=== PATIENT | female | born 1965 | race Caucasian/White ===

== ENCOUNTER 2016-05-25 14:22 | Inpatient (IN) | payer OTHER ==
[~2016-05-25 14:22] MED LIST: ADIPEX-P37.5 MG PO; ALLOPURINOL100 MG PO; CIMETIDINE300 MG PO; EFFEXOR XR37.5 MG PO; HCTZ12.5 MG PO; IBUPROFEN400 MG PO; PRENATAL FORMU1 EACH PO; TOPROL XL 50 MG50 MG PO; VITAMIN D50000 UNIT PO; XARELTO10 MG PO
[2016-05-26 05:05] LABS: HCT 36.4 % (37.0-47.0); HGB 11.6 g/dl (12.5-16.0); MCH 30.9 pg (25.0-31.0); MCHC 31.9 g/dL (32.0-36.0); MCV 96.8 fL (78.0-100.0); MPV 12.1 fL (6.0-9.5); RBC 3.76 M/uL (4.20-5.40); RDW 14.8 % (11.5-14.0); WBC 6.6 K/uL (4.0-10.5)
[2016-05-26 05:23] LABS: CREATININE 0.7 mg/dL (0.5-1.0); POTASSIUM 3.8 mmol/L (3.5-5.1)
[2016-05-27 05:15] LABS: HCT 35.9 % (37.0-47.0); HGB 11.6 g/dl (12.5-16.0); MCH 30.9 pg (25.0-31.0); MCHC 32.3 g/dL (32.0-36.0); MCV 95.7 fL (78.0-100.0); MPV 12.1 fL (6.0-9.5); RBC 3.75 M/uL (4.20-5.40); RDW 14.7 % (11.5-14.0); WBC 6.6 K/uL (4.0-10.5)
--- NOTE | 2016-05-28 01:32 | NUR ---
TELEHOSPITALIST NOTIFIED REGARDING PT'S ELEVATED BP (176/81) HR (63). SBP HAS BEEN ELEVATED OFF AND ON SINCE ADMISSION AFTER SURGERY. MD GAVE ORDER FOR ONE TIME DOSE OF HCTZ 12.5MG PO.
[2016-05-28 05:22] LABS: HCT 36.2 % (37.0-47.0); HGB 11.9 g/dl (12.5-16.0); MCH 31.4 pg (25.0-31.0); MCHC 32.9 g/dL (32.0-36.0); MCV 95.5 fL (78.0-100.0); MPV 12.1 fL (6.0-9.5); RBC 3.79 M/uL (4.20-5.40); RDW 14.8 % (11.5-14.0); WBC 7.3 K/uL (4.0-10.5)
[2016-05-28] MEDS ORDERED: PERCOCET 5/3251 TAB PO (10:44)
--- NOTE | 2016-05-28 13:32 | NUR ---
REVIEWED DISCHARGE EDUCATION, MEDICATIONS, APPT WITH PT AND SPOUSE BOTH VERBALIZE UNDERSTANDING PT GIVEN XARELTO DOSE, EXTRA DRESSING, SCRIPTS DENIES PAIN OR DISCOMFORT
[2016-05-28] MEDS ORDERED: PRINIVIL10 MG PO (15:59)
[2016-05-28] MEDS ORDERED: FEOSOL325 MG PO (15:59)
== END 2016-05-28 13:32 | disposition home health service (06) | DRG 470 ==
LOC: FMS 14:22
PROVIDERS: Internal Medicine; ADMIT Legal Medicine
PROC: 0SRC0J9 Replacement of Right Knee Joint with Synthetic Substitute, Cemented, Open Approach (ICD-10-PCS; principal; 2016-05-25 12:00)
DX: M17.11 Unilateral primary osteoarthritis, right knee (principal); D62 Acute posthemorrhagic anemia; I10 Essential (primary) hypertension; Z68.42 Body mass index [BMI] 45.0-49.9, adult; M21.061 Valgus deformity, not elsewhere classified, right knee; F41.9 Anxiety disorder, unspecified; F32.9 Major depressive disorder, single episode, unspecified; M10.9 Gout, unspecified; E66.9 Obesity, unspecified; Z88.2 Allergy status to sulfonamides; Z83.3 Family history of diabetes mellitus; Z82.49 Family history of ischemic heart disease and other diseases of the circulatory system; Z82.3 Family history of stroke; Z80.9 Family history of malignant neoplasm, unspecified
CPT/HCPCS: 36415; 73560; 80048; 84703; 86850; 86900; 86901; 88305; 88311; 94010; 94760; 94762; 97110; 97116; 97162; 97166; 97530-GP; 97535; C1776; J0131; J0697; J1885; J2270; J2274; J2795